=== PATIENT | female | born 1980 | race Caucasian/White ===

== ENCOUNTER 2021-04-03 02:01 | Inpatient (IN) | payer BC ==
[2021-04-03] VITALS (17 sets, daily range): BP systolic 100–156; BP diastolic 57–88; PULSE 64–80; TEMP 98.1–98.3
[~2021-04-03] VITALS: Ht 165.1 cm; Wt 83.2 kg
--- NOTE | 2021-04-03 02:00 | NUR ---
ambulatory to unit for assessment, accom[anied by significant other. Pt reports SROM @ 0130. Oriented to room, monitor, plan of care. SVE +SROM, 5 cm. Questions invited and answered.
[2021-04-03 05:55] LABS: BASO % 0.2 % (0.0-2.0); EOS % 0.1 % (0.0-4.0); GRAN # 10.6 K/mm3 (1.4-6.5); GRAN % 83.8 % (42.2-75.2); HEMOGLOBIN 10.9 g/dl (12.5-16.0); LYMPH # 1.2 K/mm3 (1.2-3.4); LYMPH % 9.4 % (20.0-51.0); MEAN CELL VOLUME 89 fl (80.0-100.0); MEAN CORPUSCULAR HEMOGLOBIN 31 pg (27-31); MEAN CORPUSCULAR HGB CONC 35 g/dl (33.0-37.0); MONO # 0.7 K/mm3 (0.1-0.6); MONO % 5.5 % (1.7-9.3); PLATELET COUNT 142 K/mm3 (130-400); RED BLOOD COUNT 3.56 M/mm3 (4.10-5.30); REDCELL DISTRIBUTION WIDTH-CV 12.9 % (11.5-14.5)
[2021-04-03 06:06] LABS: HEMATOCRIT 31.6 % (37.0-47.0)
--- NOTE | 2021-04-03 06:41 | NUR ---
0635- Pt states feeling pressure to push. Dr Reyes at nurses station, called to bedside. SVE by , complete. Pt and room prepped for delivery. Елена and Hernesto, Nursery RNs called to bedside. 0640- Pt pushes with UC. 0641- of viable male . Tended to by Nursery staff. 0646- Spontaneous delivery of placenta, Pitocin started at 333ml/hr. Uterus massaged by MD. 2nd degree repaired by MD. Pericare completed. Ice pack and clean chux under buttock.
--- NOTE | 2021-04-03 09:00 | NUR ---
0900- Pt ambulates independently to bathroom with this RN standby assist. Voids without difficulty. Pericare completed and explained. Peripad and underwear on. Clean gown. Pt ambulates to nursery to watch baby bath. 0940- Pt, , and baby escorted to room. Oriented to room. Call light within reach.
[2021-04-03] MEDS ORDERED: PRENATAL TABLET PO (12:59)
[2021-04-04] VITALS: BP 109/73; PULSE 81; TEMP 97.6
[2021-04-04 05:25] VITALS: BP 108/74; PULSE 64; TEMP 97.9
[2021-04-04 08:00] VITALS: BP 112/70; PULSE 80; TEMP 97.9
[2021-04-04] MEDS ORDERED: IBU600 MG PO (08:41)
--- NOTE | 2021-04-04 09:02 | NUR ---
Initial visit; Parents thanked [employer] for offering congratulations and God's blessings for the of their son. [employer] thanked family for choosing our hospital.
[2021-04-04 16:10] VITALS: BP 106/66; PULSE 88; TEMP 98.4
[2021-04-04 21:10] VITALS: BP 119/71; PULSE 79; TEMP 97.9
[2021-04-05 07:45] VITALS: BP 118/70; PULSE 64; TEMP 98.3
[2021-04-05 16:50] VITALS: BP 122/77; PULSE 81; TEMP 98.1
--- NOTE | 2021-04-05 17:05 | NUR ---
PATIENT TO BOARDER STATUS. BABY WILL GET BILI REDRAW AT 1700 TO BE REASSESSED FOR LIGHTS.
== END 2021-04-05 17:05 | disposition home or self-care (01) | DRG 807 ==
LOC: LDRO 02:01 → LDR 05:24 → OB 09:30
PROVIDERS: ADMIT Obstetrics & Gynecology
PROC: 10E0XZZ Delivery of Products of Conception, External Approach (ICD-10-PCS; principal; 2021-04-03)
PROC: 0KQM0ZZ Repair Perineum Muscle, Open Approach (ICD-10-PCS; 2021-04-03)
DX: O99.824 Streptococcus B carrier state complicating childbirth (principal); Z37.0 Single live birth; O99.02 Anemia complicating childbirth; D64.9 Anemia, unspecified; O70.1 Second degree perineal laceration during delivery; Z3A.38 38 weeks gestation of pregnancy; Z23 Encounter for immunization
CPT/HCPCS: J0595; J2540; J2590; J7120